=== PATIENT | female | born 1995 | race Caucasian/White ===

== ENCOUNTER 2017-06-10 08:43 | Emergency (ER) | payer OTHER ==
[~2017-06-10] VITALS: Ht 175.3 cm; Wt 110.8 kg
[2017-06-10 09:25] LABS: UA SPECIFIC GRAVITY 1.025 (1.005-1.035); microscopic required? YES; urine erythrocyte TRACE (NEGATIVE)
[2017-06-10 10:29] VITALS: BP 125/86
[2017-06-11 12:21] LABS: RAPID PLASMA REAGIN Non Reactive (Non Reactive)
== END 2017-06-10 10:29 | disposition home or self-care (01) ==
LOC: ED 08:43
PROVIDERS: Emergency Medicine
DX: N39.0 Urinary tract infection, site not specified (principal); N89.8 Other specified noninflammatory disorders of vagina
CPT/HCPCS: 36415; 87491; 87591; J0696; J1100; J1885

== ENCOUNTER 2018-06-28 22:34 | Emergency (ER) | payer OTHER ==
[~2018-06-28] VITALS: Ht 175.3 cm; Wt 113.9 kg
[2018-06-28 23:09] VITALS: Ht 175.3 cm; Wt 113.9 kg
[2018-06-29 00:23] VITALS: BP 134/78
== END 2018-06-29 00:23 | disposition home or self-care (01) ==
LOC: ED 22:34
DX: S61.012A Laceration without foreign body of left thumb without damage to nail, initial encounter (principal); M51.36 Other intervertebral disc degeneration, lumbar region; W26.8XXA Contact with other sharp object(s), not elsewhere classified, initial encounter; Y93.89 Activity, other specified; Y92.89 Other specified places as the place of occurrence of the external cause; Y99.8 Other external cause status
CPT/HCPCS: 90715

== ENCOUNTER 2018-11-17 12:13 | Emergency (ER) | payer OTHER ==
[~2018-11-17] VITALS: Ht 175.3 cm; Wt 115.7 kg
[2018-11-17 12:22] VITALS: Ht 175.3 cm; Wt 115.7 kg
[2018-11-17 13:52] VITALS: BP 133/78
== END 2018-11-17 13:52 | disposition home or self-care (01) ==
LOC: ED 12:13
DX: S39.012A Strain of muscle, fascia and tendon of lower back, initial encounter (principal); S16.1XXA Strain of muscle, fascia and tendon at neck level, initial encounter; V43.52XA Car driver injured in collision with other type car in traffic accident, initial encounter; Y93.I9 Activity, other involving external motion; Y92.413 State road as the place of occurrence of the external cause; Y99.8 Other external cause status
CPT/HCPCS: J1885

== ENCOUNTER 2019-08-24 06:04 | Inpatient (IN) | payer OTHER ==
[~2019-08-24] VITALS: Ht 175.3 cm; Wt 123.4 kg
[2019-08-24 06:11] VITALS: Ht 175.3 cm; Wt 123.4 kg
[2019-08-24 07:18] LABS: CALCIUM 9.1 mg/dL (8.5-10.1); CARBON DIOXIDE 21.5 mmol/L (21-32); CHLORIDE SERUM 101 mmol/L (98-107); CREATININE SERUM 0.9 mg/dL (0.6-1.0); GFR1 > 60 mL/min; GLUCOSE SERUM 120 mg/dL (74-106); POTASSIUM SERUM 3.3 mmol/L (3.5-5.1); SODIUM SERUM 134 mmol/L (136-145)
[2019-08-24 07:39] LABS: BASOPHIL % 0.3 % (0-2)
[2019-08-24 07:46] LABS: PLATELET COUNT 415 x10^3mcL (130-400); RED CELL DISTRIBUTION WIDTH 14.9 % (11.5-14.5)
[2019-08-24] MEDS ORDERED: ROBAXIN500 MG PO (12:39)
[2019-08-24] MEDS ORDERED: [UNRECOGNIZED DRUG - CODE] PO (12:40)
[2019-08-24 12:55] LABS: FREE T4 1.15 ng/dL (0.76-1.46); FREE THYROXINE INDEX 3.1 ug/dL (1.4-4.5); T4(THYROXINE) 8.3 ug/dL (4.7-13.3)
[2019-08-24 14:08] LABS: UA SPECIFIC GRAVITY 1.025 (1.005-1.035); microscopic required? YES; urine erythrocyte TRACE (NEGATIVE)
[2019-08-24 14:20] LABS: T3 TOTAL 1.06 ng/mL
[2019-08-24 15:15] LABS: PHOSPHOROUS 2.6 mg/dL (2.5-4.9)
[2019-08-24 15:38] VITALS: BP 104/49
[2019-08-24 16:05] VITALS: BP 104/49
[2019-08-24 17:32] VITALS: BP 119/59
[2019-08-24 19:30] VITALS: BP 112/49
[2019-08-24 21:39] VITALS: BP 126/60
[2019-08-25 04:46] VITALS: BP 111/62
[2019-08-25 06:16] LABS: BASOPHIL % 0.2 % (0-2); PLATELET COUNT 389 x10^3mcL (130-400)
[2019-08-25 06:36] LABS: CALCIUM 8.6 mg/dL (8.5-10.1); CARBON DIOXIDE 25.1 mmol/L (21-32); CHLORIDE SERUM 102 mmol/L (98-107); CREATININE SERUM 0.7 mg/dL (0.6-1.0); GFR1 > 60 mL/min; GLUCOSE SERUM 102 mg/dL (74-106); POTASSIUM SERUM 3.6 mmol/L (3.5-5.1); SODIUM SERUM 135 mmol/L (136-145)
[2019-08-25 07:03] LABS: RED CELL DISTRIBUTION WIDTH 15.3 % (11.5-14.5)
[2019-08-25 08:06] VITALS: BP 107/53
[2019-08-25 12:15] VITALS: BP 111/42
[2019-08-25 16:50] VITALS: BP 106/47
[2019-08-25 21:13] VITALS: BP 95/54
[2019-08-26 06:09] VITALS: BP 121/68
[2019-08-26 06:58] LABS: CALCIUM 8.6 mg/dL (8.5-10.1); CARBON DIOXIDE 22.4 mmol/L (21-32); CHLORIDE SERUM 107 mmol/L (98-107); CREATININE SERUM 0.8 mg/dL (0.6-1.0); GFR1 > 60 mL/min; GLUCOSE SERUM 106 mg/dL (74-106); POTASSIUM SERUM 3.6 mmol/L (3.5-5.1); SODIUM SERUM 143 mmol/L (136-145)
[2019-08-26 07:11] LABS: BASOPHIL % 0.2 % (0-2)
[2019-08-26 07:50] LABS: PLATELET COUNT 425 x10^3mcL (130-400); RED CELL DISTRIBUTION WIDTH 15.2 % (11.5-14.5)
[2019-08-26 08:30] VITALS: BP 117/63
[2019-08-26 12:15] VITALS: BP 117/52
[2019-08-26 16:31] VITALS: BP 131/62
[2019-08-26 20:30] VITALS: BP 114/52
[2019-08-27 06:04] VITALS: BP 115/59
[2019-08-27 06:47] LABS: BASOPHIL % 0.2 % (0-2)
[2019-08-27 07:00] LABS: PLATELET COUNT 472 x10^3mcL (130-400); RED CELL DISTRIBUTION WIDTH 15.1 % (11.5-14.5); rbc morphology (normal/abnorm) ABNORMAL (NORMAL)
[2019-08-27 07:10] LABS: CALCIUM 8.9 mg/dL (8.5-10.1); CARBON DIOXIDE 23.8 mmol/L (21-32); CHLORIDE SERUM 101 mmol/L (98-107); CREATININE SERUM 0.7 mg/dL (0.6-1.0); GFR1 > 60 mL/min; GLUCOSE SERUM 108 mg/dL (74-106); POTASSIUM SERUM 3.6 mmol/L (3.5-5.1); SODIUM SERUM 134 mmol/L (136-145)
[2019-08-27 09:00] VITALS: BP 102/48
[2019-08-27] MEDS ORDERED: ZITHROMAX TRI-500 MG PO (11:56)
[2019-08-27] MEDS ORDERED: PREDNISONE10 MG PO (11:57)
[2019-08-27] MEDS ORDERED: PRE20 PO (11:57)
[2019-08-27] MEDS ORDERED: PREDNISONE5 MG PO (11:58)
[2019-08-27 13:03] VITALS: BP 102/48
== END 2019-08-27 14:10 | disposition home or self-care (01) | DRG 871 ==
LOC: ED 06:04 → MU 14:13 → DU 14:13 → MU 08-25 15:08
PROVIDERS: Emergency Medicine; ADMIT Family Medicine
DX: A41.9 Sepsis, unspecified organism (principal); J18.9 Pneumonia, unspecified organism; J96.01 Acute respiratory failure with hypoxia; J45.901 Unspecified asthma with (acute) exacerbation; R04.2 Hemoptysis; E66.9 Obesity, unspecified; J20.9 Acute bronchitis, unspecified; D64.9 Anemia, unspecified; Z88.8 Allergy status to other drugs, medicaments and biological substances; Z91.041 Radiographic dye allergy status; Z82.49 Family history of ischemic heart disease and other diseases of the circulatory system; Z68.39 Body mass index [BMI] 39.0-39.9, adult; Z79.899 Other long term (current) drug therapy
CPT/HCPCS: 84439; 87804; G0378; J0456; J0696; J1885; J2405; J2543; J2920; J2930; J7030; J7613; J7644

== ENCOUNTER 2019-09-08 19:47 | Emergency (ER) | payer OTHER ==
[~2019-09-08] VITALS: Ht 175.3 cm; Wt 121.6 kg
[~2019-09-08 19:47] MED LIST: PRE20 PO; PREDNISONE10 MG PO; PREDNISONE5 MG PO; ROBAXIN500 MG PO; ZITHROMAX TRI-500 MG PO; [UNRECOGNIZED DRUG - CODE] PO
[2019-09-08 19:58] VITALS: Ht 175.3 cm; Wt 121.6 kg
[2019-09-08 20:55] LABS: BASOPHIL % 0.3 % (0-2)
[2019-09-08 20:59] LABS: PLATELET COUNT 437 x10^3mcL (130-400); RED CELL DISTRIBUTION WIDTH 15.8 % (11.5-14.5)
[2019-09-08 21:10] LABS: CARBON DIOXIDE 22.3 mmol/L (21-32); CHLORIDE SERUM 105 mmol/L (98-107); CREATININE SERUM 0.7 mg/dL (0.6-1.0); GFR1 > 60 mL/min; GLUCOSE SERUM 98 mg/dL (74-106); POTASSIUM SERUM 3.5 mmol/L (3.5-5.1); SODIUM SERUM 139 mmol/L (136-145)
[2019-09-08 21:14] LABS: ALBUMIN 3.4 g/dL (3.4-5.0); ALKALINE PHOSPHATASE 84 U/L (46-116); ALT/SGPT 31 U/L (14-59); AST/SGOT 12 U/L (15-37); BILIRUBIN TOTAL 0.4 mg/dL (0.20-1.00); TOTAL PROTEIN, SERUM 7.5 g/dL (6.4-8.2)
[2019-09-08 22:48] VITALS: BP 154/86
== END 2019-09-08 22:48 | disposition home or self-care (01) ==
LOC: ED 19:47
PROVIDERS: Specialist
DX: R09.1 Pleurisy (principal); R42 Dizziness and giddiness
CPT/HCPCS: 36415; 85378; 87804; J1885; J8597; Q0092; Q0162